=== PATIENT | female | born 1985 | race Caucasian/White ===

== ENCOUNTER → 2020-04-06 11:51 | Outpatient (CLI) | payer OTHER, SELFPAY ==
--- NOTE | 2020-04-06 | DI.US.S_ITS ---
PROCEDURE: US RENAL COMPLETE INDICATIONS: hydronephrosis TECHNIQUE: Real-time scanning was performed of the kidneys and bladder, with image documentation. COMPARISON: [facility], [place] WITH LAS[place], 11/14/2017, 14:25. FINDINGS: Kidneys: Kidneys are normal in size. Right kidney measures 13 cm long; left kidney measures 14 cm long. Right renal cortical thickness is 1.6 cm; left renal cortical thickness is 2.4 cm. Renal cortical echotexture is normal. Moderate bilateral hydronephrosis. Bladder: Pre-void bladder volume is 605 mL. Post-void residual is 70 mL. Pre-void images demonstrate no intraluminal masses or stones. On pre-void images, bilateral ureteral jets are noted with color Doppler interrogation. (Of note, ureteral jets may not be detectable in up to 25% of cases due to insufficient differences in specific gravity between ureteral and bladder urine). Miscellaneous: No free pelvic fluid. IMPRESSION: 1. Moderate bilateral hydronephrosis of unclear etiology. If indicated, CT could be performed for further assessment. Dictated by: Emerson MAR Interpreted: Tom Montero MD on 04/10/2020 at 14:06 Approved by: Tom Montero M.D. on 04/10/2020 at 16:52
== END ==
PROVIDERS: PCP Urology; Referring Provider Urology; Visit Provider Urology
DX: N13.30 Unspecified hydronephrosis (principal)
CPT/HCPCS: 76770

== ENCOUNTER → 2021-10-10 14:39 | Outpatient (ROUT) | payer OTHER, SELFPAY ==
[2021-10-10 16:28] LABS: Urine N gonorrhoeae NOT DETECTED
[2021-10-10 16:40] LABS: Urine Chlamydia NOT DETECTED
== END ==
PROVIDERS: PCP Urology; Visit Provider Obstetrics & Gynecology
DX: Z34.02 Encounter for supervision of normal first pregnancy, second trimester (principal); Z3A.16 16 weeks gestation of pregnancy
CPT/HCPCS: 87491; 87591

== ENCOUNTER → 2021-11-07 09:48 | Outpatient (CLI) | payer OTHER, SELFPAY ==
--- NOTE | 2021-11-07 09:50 | DI.US.S_ITS ---
PROCEDURE: US OB >= 14 WEEKS FETUS INDICATIONS: 20 WEEK SURVEY OUTSIDE/PRIOR DATING DATA: Last menstrual period (LMP): 06/17/2021 LMP-based estimated date of delivery (FLORES): 03/24/2022 First trimester dating scan is not available. TECHNIQUE: Real-time scanning was performed of the fetus, with image documentation and biometric measurements. Endovaginal scanning: Not performed COMPARISON: None. FINDINGS: General: A single living intrauterine gestation is present. Presentation: Vertex Placenta: Posterior, without previa Amniotic fluid index: 16 heart rate: 143 beats per minute Maternal cervical canal: 5.3 centimeters biometrics: Biparietal diameter: 5 centimeters Head circumference: 18.7 centimeters Abdominal circumference: 16.5 centimeters Femur length: 3.5 centimeters Clinically estimated gestational age: 20 weeks and 3 days Composite gestational age from present scan: 21 weeks and 1 day Estimated weight and percentile: 408 grams, 86 percentile Anatomic survey: Neuro: Ventricles are non-dilated at less than 10 mm. Cisterna magna is normal at 3-11 mm. Cerebellum is normal in size and morphology. Nuchal skin fold: Normal at less than 6 mm between 14-21 weeks gestational age. Face: Nose and lips, facial profile are normal. Spine: No evidence for spina bifida. Heart: 4-chambered heart is present, with normal ventricular outflow tracts. Diaphragm: Diaphragm is intact. Stomach: Left-sided stomach is present. Kidneys: Both kidneys are seen. Left renal pelvis measures 6 millimeters. Right renal pelvis measures 8-9 millimeters.. Cord: 3-vessel cord has orthotopic insertion. Bladder: Normal in size. Extremities: All 4 extremities identified. IMPRESSION: Intrauterine living gestation at 20 weeks and 3 days by clinical age, concordant with today's biometry which measures 21 weeks and 1 day at the upper limit of normal for size at the 86 percentile. Bilateral pelviectasis. UTD A1 on the left. UTD A2 on the right. Follow-up is recommended in 4-6 weeks. follow-up can also be obtained depending on results. Other parts of the anatomic survey are normal. We strive to produce accurate, complete, and clear reports of imaging services. To assist us in improving patient care, this report was composed using standard report templates and voice recognition software. Therefore, it may contain abnormal punctuation, insertions and/or omissions. Occasional wrong-word or sound-alike substitutions may occur. Though we review the report and make efforts to correct it, we do recommend that the report be read carefully in proper context to recognize any text inaccuracies. Dictated by: Brandon Gonzalez M.D. on 11/07/2021 at 11:31 Approved by: Brandon Gonzalez M.D. on 11/07/2021 at 11:37
== END ==
PROVIDERS: Referring Provider Obstetrics & Gynecology; Visit Provider Obstetrics & Gynecology
DX: Z34.82 Encounter for supervision of other normal pregnancy, second trimester (principal); Z3A.21 21 weeks gestation of pregnancy
CPT/HCPCS: 76811

== ENCOUNTER → 2021-11-08 08:54 | Outpatient (CLI) | payer OTHER, SELFPAY ==
[2021-11-08 09:52] LABS: Appearance Urine UA CLEAR; Bilirubin Urine UA NEGATIVE (NEGATIVE); Color Urine UA YELLOW; Glucose Urine UA NEGATIVE (Negative); Ketones Urine UA NEGATIVE (NEGATIVE); Leukocyte Esterase Urine UA 2+ (NEGATIVE); Nitrite Urine UA NEGATIVE (Negative); Occult Blood Urine UA 1+ (Negative); Protein Urine UA NEGATIVE (Negative); Specific Gravity Urine UA <=1.005 (1.000-1.035); Urobilinogen Urine UA 0.2 E.U./dL (0.2)
[2021-11-08 10:26] LABS: Bacteria Urine Many (>30); Culture Indicated Urine Specimen Cultured; RBC Urine 1-5/HPF (0-5/HPF); Squamous Epithelial Cell Urine 1-5 /HPF (0-5/HPF); WBC Urine 30-100/HPF (0-5/HPF)
== END ==
PROVIDERS: Referring Provider Obstetrics & Gynecology; Visit Provider Obstetrics & Gynecology
DX: N39.0 Urinary tract infection, site not specified (principal)
CPT/HCPCS: 81003; 81015; 87086

== ENCOUNTER → 2021-12-19 09:05 | Outpatient (CLI) | payer OTHER, SELFPAY ==
--- NOTE | 2021-12-19 09:08 | DI.US.S_ITS ---
PROCEDURE: US OB FOLLOW UP INDICATIONS: Bilateral pyelectasis noted on 20 week anatomy scan OUTSIDE/PRIOR DATING DATA: Last menstrual period (LMP): 06/17/2021. LMP-based estimated date of delivery (FLORES): 03/24/2022 First dating scan (date and location): Unknown Estimated date of delivery (FLORES) from first dating scan: Unknown TECHNIQUE: Real-time scanning was performed of the fetus, with image documentation and biometric measurements. COMPARISON: None. FINDINGS: General: A single living intrauterine gestation is present. Presentation: Transverse. Placenta: Placental position is posterior , without previa. Amniotic fluid index: 16.2 cm, normal range is 5-24 cm. Single deepest vertical pocket is 5.3 cm. heart rate: 145 beats per minute. Maternal cervical canal: 4.4 cm long. Normal lower limit is 2.5 cm. Clinically estimated gestational age: 26 week 3 day Anatomic survey: Stable bilateral renal pyelo caliectasis. The right and left renal pelvis measures 9.3 and 5.3 mm, previously 8.5 and 6.0 mm IMPRESSION: Single live intrauterine consistent with 26 week 3 day gestation. Stable bilateral renal pyelocaliectasis Approved by: Otilio Lopes M.D. on 12/19/2021 at 14:56
[2021-12-19 11:20] LABS: Hemoglobin 11.8 g/dL (12.0-16.0)
[2021-12-19 11:32] LABS: GTT (PREG) 1 Hour PP 50gm Dose 79 mg/dL (76-139)
== END ==
PROVIDERS: Referring Provider Obstetrics & Gynecology; Visit Provider Obstetrics & Gynecology
DX: O35.8XX0 Maternal care for other (suspected) fetal abnormality and damage, not applicable or unspecified (principal); O26.892 Other specified pregnancy related conditions, second trimester; Z67.91 Unspecified blood type, Rh negative; Z3A.26 26 weeks gestation of pregnancy
CPT/HCPCS: 36415; 76816; 82950; 85014; 85018; 86850

== ENCOUNTER → 2022-01-16 09:00 | Outpatient (CLI) | payer OTHER, SELFPAY ==
--- NOTE | 2022-01-16 09:01 | DI.RAD.S_ITS ---
PROCEDURE: XR CHEST 2V INDICATIONS: cough, congestion, rsv TECHNIQUE: 2 views of the chest were acquired. COMPARISON: None. FINDINGS: Surgical changes and devices: None. Lungs and pleura: Lungs are clear. No pleural effusions or pneumothorax. Mediastinum: Mediastinal contours are normal. Heart size is normal. Bones and chest wall: No suspicious bony abnormalities. Soft tissues appear unremarkable. IMPRESSION: No acute cardiopulmonary process demonstrated radiographically. Dictated by: Tom Montero M.D. on 01/16/2022 at 11:47 Approved by: Tom Montero M.D. on 01/16/2022 at 11:48
== END ==
PROVIDERS: Referring Provider Obstetrics & Gynecology; Visit Provider Obstetrics & Gynecology
DX: O98.519 Other viral diseases complicating pregnancy, unspecified trimester (principal); B33.8 Other specified viral diseases; R05.3 Chronic cough
CPT/HCPCS: 71046

== ENCOUNTER 2022-03-26 09:46 | Outpatient (CLI) | payer OTHER, SELFPAY ==
--- NOTE | 2022-03-26 11:27 | PM.OBTRLD ---
Visit Information Visit Information Date of evaluation: 03/26/22 Primary OB Provider: José Herron Reason for Evaluation: Yes non-stress test Comments/Additional reasons for admission: 36 yo at 40+2 wks EGA for NST due to EGA and AMA. [facility] Medical History Abnormal Pap smear of cervix (~2018) Anorexia nervosa (~2008) Anxiety (~2008) Chicken pox (~1991) Depression (~2008) Hay fever (~1996) Herpes (~2018) Human papilloma virus (~2018) Hydronephrosis (~2016) PCOS (polycystic ovarian syndrome) Psoriasis (~2005) UPJ (ureteropelvic junction) obstruction (~2020) Surgical History Anesthesia History of dental surgery History of surgery (~05/17/20) [place] teeth extracted Family History Mother Skin cancer Hyperlipidemia Father Parkinson disease Dementia Grandmother Dementia Parkinson disease Grandfather Cancer Grandmother Hypertension Hyperlipidemia Social History marital status: number of children: 2 household members: spouse and children lives independently: Yes housing: house pets and animals: Yes (2 dogs) education level: college (Gabriel's degree) occupational status: employed current occupational exposures/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) special audelia needs: No travel history: over 6 months ago seatbelt use: always helmet use: Yes water heater temp set < 120 deg: Yes working smoke detector in home: Yes fire extinguisher in home: Yes carbon monox detector in home: Yes firearms in home: No do you feel safe at home: Yes Smoking Status: Never smoker second hand exposure: No alcohol intake: former substance use type: does not use during the past year weight has: remained stable well-balanced diet: daily or most days daily servings fruits/ve-4 caffeine: No Type(s) of exercise: weight lifting Evaluation Evaluation Baseline heart rate: 140 Variability: Moderate (11-25) monitor accelerations: Present Monitor Decelerations: Absent Category of Tracing: Reactive Comments: OMER = 9.92 cm Diagnosis, Plan/Disposition Plan/Disposition Plan: Patient will return on the morning of 03/29/2022 for induction. OB Disposition: home
[2022-03-27 20:41] LABS: COVID19 -Nasal RAPID Negative (Negative)
--- NOTE | 2022-03-27 20:42 | PM.OBHP.IH.1 ---
OB HPI Date/Time Date of admission: 03/27/22 Date Patient Seen: 03/27/22 Time Patient Seen: 20:00 History of Present Condition Chief complaint: labor FLORES Calculator Estimated Delivery Date Method Current WG Current Estimate 03/24/22 LMP (Certain) 40w 3d Other Estimates 03/28/22 Ultrasound #1 39w 6d Estimated Gestational Age (weeks): 40 3/7 : 3 Para: 2 Narrative: Evon Garces is a 36YO @ 40 3/7 weeks by LMP concordant with early US here for evaluation of labor. Has been evangelista all day and contractions became painful around 4pm, no occasioanlly breathing through them. Has also had diarrhea today and unable to keep down much fluid. 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 care: good care, number of visits (13) and pounds weight gain (26) Dating criteria OB: LMP confirmed by 1st trimester US Ultrasounds: normal mid trimester US Obstetrical complications: none Medical complications OB: none Preadmission Labs Last OB Lab Results: Antibody Screen Negative 12/19/21 09:50 Hematocrit 33.0 % (36-46) L 12/19/21 09:50 Hemoglobin 11.8 g/dL (12.0-16.0) L 12/19/21 09:50 Glucose 1 Hour 79 mg/dL (76-139) 12/19/21 09:50 Glucose Tolerance Testin hr (79) -: Chlamydia screen: negative and Gonorrhea screen: negative Genetic Screens: Cell-free DNA: Normal Prior (ies) Past Pregnancies Del. Date GA/Weeks Labor Lgth Wt Sex Route Outcome Anesthesia Place Delv Breastfeed Preg Comp Name 11/03/14 37 29 3.402 kg Male vaginal live - full term [place], [place] 1 year none Gage Otoole 02/08/17 37 10 3.827 kg Male vaginal live - full term [facility] 4 months other Maurice Jiménezner Delivery Date: 02/08/17 Last Updated by: Sylvei Santos R.N. position causing ureter obstruction -->acute renal failure Evaluation Evaluation Baseline heart rate: 135 Variability: Moderate (11-25) monitor accelerations: Present Monitor Decelerations: Early (sinlge) and Late (single) Contraction Frequency (minutes): 3 Uterine Contraction Intensity: Moderate Status: Category ll Dilation (cm): 4 Effacement (%): 80 Dilation: 3-4 cm Effacement: >/=80% station: -2 Position of cervix: posterior Consistency: soft Kirkland score: 8 [facility] Medical History Abnormal Pap smear of cervix (~2018) Anorexia nervosa (~2008) Anxiety (~2008) Chicken pox (~1991) Depression (~2008) Hay fever (~1996) Herpes (~2018) Human papilloma virus (~2018) Hydronephrosis (~2016) PCOS (polycystic ovarian syndrome) Psoriasis (~2005) UPJ (ureteropelvic junction) obstruction (~2020) Surgical History Anesthesia History of dental surgery History of surgery (~05/17/20) [place] teeth extracted Family History Mother Skin cancer Hyperlipidemia Father Parkinson disease Dementia Grandmother Dementia Parkinson disease Grandfather Cancer Grandmother Hypertension Hyperlipidemia Social History marital status: number of children: 2 household members: spouse and children lives independently: Yes housing: house pets and animals: Yes (2 dogs) education level: college (Gabriel's degree) occupational status: employed current occupational exposures/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) special audelia needs: No travel history: over 6 months ago seatbelt use: always helmet use: Yes water heater temp set < 120 deg: Yes working smoke detector in home: Yes fire extinguisher in home: Yes carbon monox detector in home: Yes firearms in home: No do you feel safe at home: Yes Smoking Status: Never smoker second hand exposure: No alcohol intake: former substance use type: does not use during the past year weight has: remained stable well-balanced diet: daily or most days daily servings fruits/ve-4 caffeine: No Type(s) of exercise: weight lifting Meds Home Medications and Allergies Home Medications Medication Instructions Recorded Confirmed Type prenat.vits,diane,rdu-yjhn-pmqpi 1 tab PO DAILY 08/13/21 03/27/22 History valacyclovir 500 mg tablet 500 mg PO DAILY 08/13/21 03/27/22 History Double electric breast pump #1 ea 10/10/21 03/27/22 Rx Allergies Allergy/AdvReac Type Severity Reaction Status Date / Time No Known Allergies Allergy Verified 03/26/22 09:04 Review of Systems Review of Systems ROS: Yes All systems reviewed with the patient and are negative except as otherwise documented Gastrointestinal Gastrointestinal: Reports change in stool character and Reports loose stools OB Exam Vital signs Blood Pressure: 124/76 Pulse Rate: 85 Temperature: 98.2 F Resp Effort & Inspection: normal respiratory effort and able to speak in complete sentences Auscultation: clear to auscultation bilaterally Cardio Rate: regular rate Rhythm: regular rhythm Heart Sounds: S1 normal and S2 normal Presentation: vertex Objective Labs Labs: Laboratory Results - last 24 hr 03/27/22 19:50 SARS-CoV-2 (PCR) Negative Assessment and Plan Assessment and Plan Assessment and Plan narrative: A: Term Multipara Approaching active labor GBS prophylaxis indicated Rh negative Cat II FHR- overall reassuring P: Admit, routine orders. 1L LR IVFB now. Epidural when requested. Initiate GBS prophylaxis in 1-2 hours. Reassess in 4 hours or sooner, PRN.
[2022-03-27 20:57] VITALS: BP 124/76; PULSE 85; TEMP 36.8
[2022-03-27 20:58] LABS: Add Manual Diff / Slide Review NO; Basophils Absolute Auto 0 /uL (0-100); Basophils Percent Auto 0.1 % (0-2); Eosinophils Absolute Auto 0 /uL (0-450); Eosinophils Percent Auto 0.1 % (2-4); Hematocrit 40.1 % (36-46); Hemoglobin 13.9 g/dL (12.0-16.0); Lymphocytes Absolute Auto 600 /uL (1100-4500); Lymphocytes Percent Auto 7.1 % (25-40); Mean Corpuscular HGB Conc 34.8 % (30-36); Mean Corpuscular Volume 94.8 fL (80-100); Monocytes Absolute Auto 200 /uL (0-900); Monocytes Percent Auto 2.7 % (3-14); Neutrophils Absolute Auto 8000 /uL (1500-7000); Platelet Count 205 X10^3/uL (150-400); Red Blood Cell Count 4.23 X10^6/uL (4.0-5.2); Red Cell Distribution Width 14.3 % (11.6-14.8); White Blood Cell Count 8.9 X10^3/uL (4.5-11.0)
== END 2022-03-26 11:30 | disposition home or self-care (01) ==
LOC: LABOR 10:25 → OB 03-28 10:03
PROVIDERS: Nurse Practitioner Obstetrics & Gynecology; Referring Provider Obstetrics & Gynecology; Visit Provider Obstetrics & Gynecology
DX: O48.0 Post-term pregnancy (principal); Z3A.40 40 weeks gestation of pregnancy; Z20.822 Contact with and (suspected) exposure to COVID-19
CPT/HCPCS: 36415; 59025; 76815; 85025; 86850; 86900; 86901; 87635; C9803; G0378; G0379

== ENCOUNTER 2022-03-27 19:00 | Inpatient (IN) | payer OTHER, SELFPAY ==
[2022-03-27] MEDS: LACTATED RINGERS 1,000 ML 1000 ML IV (20:08)
[2022-03-27 20:12] VITALS: BP 124/76
[2022-03-27] MEDS: AMPICILLIN 2,000 MG in SODIUM CHLORIDE 0.9% 100 ML 200 MG IV (21:31)
[2022-03-27] MEDS: LACTATED RINGERS 1,000 ML 100 ML IV (21:33)
[2022-03-27] MEDS: FENT 2MCG/ML BUPIV 0.125% EPI 200 MCG/100 ML PLAST..BAG 8 MCG EPIDURAL (23:00)
--- NOTE | 2022-03-28 00:15 | PM.OBPNLAB ---
Date/Time Date Patient Seen: 03/28/22 Time Patient Seen: 00:10 Pain Control Pain control: epidural Comments: Coping and resting well after epidural placement. Occasional diarrhea persists. Had recent episode of emesis and nausea is currently resolved. Eager for labor to be over and interested in AROM to help things progress. 2 total liters of IV fluids in. 2nd dose of IV antibiotics due at 1:30am VS: BP 114/68mmHg, HR 71bpm, RR 16/min, T 36.8C Temporal, SpO2 Pelvic Exam Dilation (cm): 6 Effacement (%): 80 station: -2 Amniotic membrane status: Ruptured (AROM) Contractions Monitor mode: External Contraction frequency (min): 3 Contraction duration (min): 1 Contraction intensity: Strong/Firm Status status: Category ll Heart Rate Baseline: 135 Monitor Accelerations: Present Monitor Decelerations: Late and Variable Comments: Periods of category 1 FHR tracing, then periods of Cat II for minimal variability, rare variables and rare late decelerations. No recurrent decelerations. Assessment and Plan Assessment: active labor Plan: begin patient augmentation Comments: AROM for moderate, clear fluid during the exam. Anticipate NSVB after adequate treatment for GBS unknown.
[2022-03-28] MEDS: AMPICILLIN 1,000 MG in SODIUM CHLORIDE 0.9% 100 ML 200 MG IV ×2 (01:28→05:31)
--- NOTE | 2022-03-28 04:18 | PM.OBPNLAB ---
Date/Time Date Patient Seen: 03/28/22 Time Patient Seen: 04:19 Pain Control Pain control: epidural Comments: Patient remains comfortable with epidural anesthesia. Nausea has returned and Zofran ordered. VS: BP 100/56mmHg, HR 56bpm, T 36.5C, RR 16/min, SpO2 99% on RA Pelvic Exam Dilation (cm): 7 Effacement (%): 90 station: -2 Amniotic membrane status: Ruptured (AROM) Comments: cervix stretches to 9cm Contractions Monitor mode: External Pitocin rate (mU/min): 0 Contraction frequency (min): 3 Contraction duration (min): 1 Contraction intensity: Moderate Status status: Category ll Heart Rate Baseline: 130 Monitor Accelerations: Present Monitor Decelerations: Late (occasional) Monitor Variability: Moderate Comments: periods of categaory 1 FHR followed by periods of cat II for minimal variability and occasional late decelerations Assessment and Plan Assessment: active labor Plan: continuous present management Comments: Encourage peanut ball and frequent position changes. Will start pitocin if minimal change at next exam. Reassess in 4 hours or MALINI cernaN.
[2022-03-28] MEDS: ONDANSETRON 4 MG/2 ML INJ IV (04:20)
[2022-03-28] MEDS: FENT 2MCG/ML BUPIV 0.125% EPI 200 MCG/100 ML PLAST..BAG 8 MCG EPIDURAL (06:11)
--- NOTE | 2022-03-28 07:39 | PM.OBPNLAB ---
Date/Time Date Patient Seen: 03/28/22 Time Patient Seen: 07:40 Pain Control Pain control: tolerating well and epidural Pelvic Exam Dilation (cm): 10 Effacement (%): 100 station: +1 Amniotic membrane status: Ruptured (AROM) Contractions Monitor mode: External Contraction frequency (min): 3 Contraction pattern: Regular Contraction phase: Resting Contraction intensity: Moderate Status status: Category l Heart Rate Baseline: 125 Monitor Accelerations: Present Monitor Decelerations: Absent Monitor Variability: Moderate Assessment and Plan Assessment: active labor Plan: continuous present management Comments: Anticipate
--- NOTE | 2022-03-28 08:34 | P.PCNOB_ITS ---
Labor & Delivery Delivery date: 03/28/22 Intrapartal Events: None Cervical ripening method: none Induction method: none Delivery augmentation: rupture of membranes Delivery monitor: external FHT and external uterine Route of delivery: L&D Laceration Description: None Estimated blood loss (mL): 150 Anesthesia Type: Epidural Complications: None Narrative: Following a brief 2nd stage, the patient pushed successfully over an intact perineum a viable male with Apgars of 8 and 9 and a weight of 3979 g (8 lb 12.4 oz) in the right occiput anterior position. No shoulder dystocia was encountered and there was no cord entanglement. Following delivery of the infant, skin to skin contact was initiated immediately and delayed cord clamping performed. Once the umbilical cord was doubly clamped and cut, a sample of umbilical cord blood was obtained for routine studies. The placenta was easily delivered with gentle cord traction and suprapubic counter traction. Placenta was inspected and found to be intact with a central insertion of the cord which had 3 vessels. IV Pitocin was initiated immediately following delivery of the placenta and bleeding was minimal. Inspection of the perineum and vagina demonstrated only some very superficial abrasions at the introitus but no lacerations that required repair. At the completion of the delivery process both mother and baby were doing well. [place] Baby 1: Infant gender: Male Presentation: vertex Position: Right Occiput Anterior Placenta delivery description: Spontaneous Cord Vessel Description: 3 Vessels score (1 min): 8 weight: 8 lb 12.355 oz Plan for aftercare: Routine care
[2022-03-28] MEDS: ACETAMINOPHEN 325 MG TABLET 650 MG PO ×3 (11:35→23:14)
[2022-03-28] MEDS: IBUPROFEN 600 MG TABLET PO ×2 (17:11→23:14)
[2022-03-29 06:28] LABS: Add Manual Diff / Slide Review NO; Basophils Absolute Auto 0 /uL (0-100); Basophils Percent Auto 0.9 % (0-2); Eosinophils Absolute Auto 0 /uL (0-450); Eosinophils Percent Auto 0.4 % (2-4); Hematocrit 38.4 % (36-46); Hemoglobin 13.3 g/dL (12.0-16.0); Lymphocytes Absolute Auto 1400 /uL (1100-4500); Lymphocytes Percent Auto 26.8 % (25-40); Mean Corpuscular HGB Conc 34.6 % (30-36); Mean Corpuscular Hemoglobin 33.1 PG (26-34); Mean Corpuscular Volume 95.6 fL (80-100); Monocytes Absolute Auto 400 /uL (0-900); Monocytes Percent Auto 7.2 % (3-14); Neutrophils Absolute Auto 3300 /uL (1500-7000); Neutrophils Percent Auto 64.7 % (50-75); Platelet Count 182 X10^3/uL (150-400); Red Blood Cell Count 4.02 X10^6/uL (4.0-5.2); Red Cell Distribution Width 14.4 % (11.6-14.8); White Blood Cell Count 5.1 X10^3/uL (4.5-11.0)
[2022-03-29] MEDS: DOCUSATE 100 MG CAPSULE PO (08:31)
--- NOTE | 2022-03-29 09:38 | PM.OBDS.1 ---
Discharge Providers Provider Date of admission: 03/27/22 19:00 Discharge Date: 03/29/22 Primary care physician: Shahid HOLCOMB Provider Consults: 03/29/22 08:31 Consult to [employer] Routine Comment: Discharge provider: José Herron MD Summary Hospital Course Date Patient Seen: 03/29/22 Time Patient Seen: 09:38 Diagnoses: Intrauterine gestation, 40+4 weeks EGA, delivered by spontaneous vaginal Hospital Course: Evon was admitted late on the evening of 03/27/2022 in early labor. Following placement of the epidural catheter for pain relief and AROM, progressed spontaneously and delivered vaginally on the morning of 03/29/2022 a viable male , weight 3979 gms. (8 lbs. 12.4 oz.). Following delivery both mother and baby have done extremely well. The patient has experienced prompt return of bowel and bladder function, she is ambulating independently, tolerating regular diet, and her pain is well controlled with oral pain medications. She will be discharged at this time to home in an afebrile normotensive condition after counseling regarding precautionary symptoms, limitations of activity, medications, and plans for follow-up which will be in 6 weeks. She will use [id number] Tylenol and/or ibuprofen for pain relief and continue her prophylactic daily antiviral therapy. Peripartum Data Infant Delivery Method: Natural Vaginal Laceration Description: None Episiotomy description: None complications: none 1: Gender: Male Disposition of : home Status at Discharge Cognitive/behavioral status at discharge: oriented Functional status at discharge: independent ambulation Overall status at discharge: patient is progressing back to baseline Time Spent with Patient Time attestation: Total time spent providing and/or coordinating discharge services: Objective Labs Result Diagrams: 03/29/22 06:15 Labs: Laboratory Results - last 24 hr 03/29/22 03/29/22 06:15 06:15 WBC 5.1 RBC 4.02 Hgb 13.3 Hct 38.4 MCV 95.6 MCH 33.1 MCHC 34.6 RDW 14.4 Plt Count 182 Neut % (Auto) 64.7 D Lymph % (Auto) 26.8 Sutter % (Auto) 7.2 Eos % (Auto) 0.4 L Baso % (Auto) 0.9 Neut # (Auto) 3300 Lymph # (Auto) 1400 Sutter # (Auto) 400 Eos # (Auto) 0 Baso # (Auto) 0 Maternal Bleed Negative Exam Const General: cooperative and comfortable Nutritional Appearance: average body habitus Orientation: alert and oriented x3 HENMT Head: normal to inspection, atraumatic and abrasion Ears: hearing grossly normal bilaterally Face and sinus: face symmetric Eyes General: appearance normal, both eyes and all related structures Conjunctivae: conjunctivae normal Sclera: sclerae normal EOM: EOM intact bilaterally Neck Neck: normal visual inspection Resp Effort & Inspection: normal respiratory effort and able to speak in complete sentences Auscultation: clear to auscultation bilaterally GI Inspection: normal to inspection Palpation: soft and no hepatosplenomegaly External Female Exam: other (No significant bleeding noted) Extrem General: no calf tenderness Psych Appearance: grossly normal Mental Status: mental status grossly normal Speech and Movement: speech and movement normal Mood: congruent mood Affect: normal affect Attitude: cooperative Thought Process: normal Thought Content: normal Judgment: judgment good Discharge Plan Discharge Plan Patient Disposition: Home Provider Discharge Comment: Please review the written instructions you received when you were discharged from the hospital. Your follow-up exam will be scheduled for 6 weeks following her delivery and I look forward to seeing you then. If however you have any issues, concerns, or problems in the meanwhile, please contact me either through the office phone at [phone], or via the patient portal. Discharge orders & Medications Prescriptions: Continued prenat.vits,diane,jck-[id number] Tablet 1 tab PO DAILY valacyclovir 500 mg tablet 500 mg PO DAILY (DME) Double electric breast pump See Rx Instructions .Route .MEDSUPPLY Qty: 1 0RF Rx Instructions: Breast pump and supplies. FLORES 03/24/22 Follow up/Referrals: José Herron MD [Physician] - ( appt: please follow up w/ Dr. Herron on May 09 @ 11:15am) Discharge Health Status Multidrug resistant organism: No MDRO Diet/Activity/Treatments Diet: Diet as Tolerated Activity: As tolerated Other treatments: Inss-zca-pxbpifm Tylenol and/or ibuprofen they use for pain relief. Nlcm-dkw-[id number] stool softeners and or MiraLax may used for constipation Skin/Wound/Dressing Care Report to your healthcare provider any signs of infection, such as:: chills, fever, increased pain, unusual drainage and unusual redness Visit Report/Discharge Packet Instructions: DI for Labor and Delivery, Vaginal , DI for and Nipple Soreness Stand Alone Forms: Discharge: Care Discharge Data Primary Care Provider: Shahid Rosas
== END 2022-03-29 10:45 | disposition home or self-care (01) | DRG 806 ==
PROVIDERS: Admitting Provider Obstetrics & Gynecology; Referring Provider Obstetrics & Gynecology; Visit Provider Obstetrics & Gynecology
DX: O76 Abnormality in fetal heart rate and rhythm complicating labor and delivery (principal); O98.52 Other viral diseases complicating childbirth; Z37.0 Single live birth; Z3A.40 40 weeks gestation of pregnancy; O99.02 Anemia complicating childbirth; D64.9 Anemia, unspecified; B00.9 Herpesviral infection, unspecified; O99.824 Streptococcus B carrier state complicating childbirth
CPT/HCPCS: 36415; 59025; 59050; 59400; 85025; 85461; 96360; G0379; J0290; J2405

== ENCOUNTER → 2023-04-14 11:14 | Outpatient (CLI) | payer OTHER, SELFPAY | LOC: LAB 11:14 | PROVIDERS: Referring Provider Obstetrics & Gynecology; Visit Provider Obstetrics & Gynecology | DX: N97.0 Female infertility associated with anovulation (principal) | CPT/HCPCS: 36415; 84144 ==

== ENCOUNTER → 2023-06-10 13:51 | Outpatient (CLI) | payer OTHER, SELFPAY | PROVIDERS: Referring Provider Obstetrics & Gynecology; Visit Provider Obstetrics & Gynecology | DX: N97.0 Female infertility associated with anovulation (principal) | CPT/HCPCS: 36415; 84144 ==

== ENCOUNTER → 2023-07-10 08:54 | Outpatient (CLI) | payer OTHER, SELFPAY | PROVIDERS: Referring Provider Obstetrics & Gynecology; Visit Provider Obstetrics & Gynecology | DX: N97.0 Female infertility associated with anovulation (principal) | CPT/HCPCS: 36415; 84144 ==

== ENCOUNTER 2023-07-17 08:40 | Day surgery (SDC) | payer OTHER, SELFPAY ==
[2023-07-17 09:09] VITALS: BMI 22.1
[2023-07-17] MEDS: LACTATED RINGERS 1,000 ML 42 ML IV (09:21)
[2023-07-17] MEDS: OXYMETAZOLINE NASAL SPRAY 30 ML 2 SPRAYS NASAL (09:21)
[2023-07-17] MEDS: SCOPOLAMINE 1 PATCH TOP (09:22)
[2023-07-17] MEDS: ACETAMINOPHEN 325 MG TABLET 975 MG PO (09:22)
--- NOTE | 2023-07-17 09:37 | P.OP_ITS ---
Operative Date/Time/Diagnoses Date of procedure: 07/17/23 Time of procedure: 11:02 Pre-op diagnosis: Left chronic maxillary sinusitis, chronic anterior ethmoiditis, facial pain, nasal obstruction Post-op diagnosis: same Procedure & Clinicians Procedure: 1. Left endoscopic maxillary antrostomy 2. Left endoscopic anterior ethmoidectomy Same procedure as scheduled: Yes Indications: 37 Year old with the above diagnoses incompletely managed with medical therapy presents for the above procedure. Following discussion of the material risks benefits complications and alternatives, the patient elected to proceed. Surgeon: De Roldan Click Yes if Unassisted: Yes Anesthesia Type: General and Local Operative Notes Findings: NON-Inflamed maxillary sinus mucosa, moderately narrow access to the middle meatus due to mild septal deviation and ITH Estimated Blood Loss (mL): 30 Procedure in detail: Following identification and confirmation of consent as well as preoperative Afrin nasal spray, the patient was brought to the operating room suite and placed in the supine position. General endotracheal anesthesia was administe red. Under endoscopic guidance the posterior and anterior superior insertion of the left middle turbinate was then infiltrated with additional local anesthetic via spinal needle, and small cottonoids with 1:1000 epi where placed in the middle meatus for several minutes. The middle turbinate was slightly medialized and the uncinate process was identified with uncinectomy performed via the backbit ing forceps and the microdebrider. The natural os of the maxillary sinus was identified and enlarged posteriorly and inferiorly with forceps and the microdebrider. Anterior ethmoidectomy was performed by removing the ethmoid bulla with the microdebrider. Minimal hemostasis with suction electrocautery on a setting of 10 utilized. The procedure completed, sponge and needle counts were correct and the patient was extubated in the operating room and taken to recovery room in stable condition without known complication. Complications: none Post-operative Condition: stable Disposition: same day surgery Plan for aftercare: Nasal saline every hour while awake, begin irrigations t.i.d. tomorrow, Tylenol alternating with Advil for pain control, oxycodone for breakthrough pain. Elevate head of bed, no nose blowing, no straining for 2 weeks.
--- NOTE | 2023-07-17 09:37 | PM.PREOP ---
Pre-operative Note Interval Note History & Physical reviewed/Exam performed by Physician: Yes Changes to H&P: No
--- NOTE | 2023-07-17 10:28 | SUR.OPER ---
Supine on padded OR bed, head on pillow, arms padded and tucked at sides, legs uncrossed, safety belt at thigh, tape over blanket over lower legs .
[2023-07-17] MEDS: LIDOCAINE 1% W/EPI 20 ML INJ (10:33)
[2023-07-17] MEDS: EPINEPHrine 1 MG/ML 3 MG INJ (10:34)
[2023-07-17 11:10] VITALS: BP 125/56; PULSE 44; RESP 16; TEMP 36.8; O2SAT 98
[2023-07-17 11:15] VITALS: BP 102/56; PULSE 41; RESP 17; O2SAT 98
[2023-07-17 11:20] VITALS: BP 120/67; PULSE 42; RESP 16; TEMP 36.2; O2SAT 98
[2023-07-17] MEDS: OXYCODONE IR 5 MG TABLET PO (11:20)
[2023-07-17] MEDS: ONDANSETRON 4 MG/2 ML INJ IV (11:20)
[2023-07-17 11:32] VITALS: BP 121/55; PULSE 41; RESP 16; TEMP 36.2; O2SAT 98
== END 2023-07-17 11:52 | disposition home or self-care (01) ==
PROVIDERS: Referring Provider Otolaryngology; Visit Provider Otolaryngology
PROC: (CPT 31231; principal; 2023-07-17 09:45)
DX: J34.2 Deviated nasal septum (principal)
CPT/HCPCS: 31254; 31267; J0171; J1100; J2250; J2405; J2704; J3010

== ENCOUNTER 2024-11-11 07:01 | Day surgery (SDC) | payer OTHER, SELFPAY ==
--- NOTE | 2024-11-11 | PATH_ITS ---
[facility] Accession Number: [id number] No. of containers..01 Tissue . 01 Material submitted: . colon - COLON . 01 Diagnosis: A: COLON: Colonic mucosa with no significant diagnostic abnormality. Negative for active, chronic, or microscopic colitis. Negative for granulomas, dysplasia, or malignancy. [facility] 11/22/2024 1454 Local . 01 Electronically signed: . Aly Tobias MD, Pathologist NPI- [id number] . 01 Gross description: . Received in formalin with two identifiers and colon, are four soft noel tissue fragments ranging from 0.4 to 0.5 cm in greatest dimension. Entirely submitted in cassette A1. ([id number]) /THADDEUS 11/20/20241944 Local . 01 Pathologist provided ICD-10: K59.00 . 01 CPT . 279075 Specimen Comment: A courtesy copy of this report has been sent to [phone] Performed at: [address] [facility] [address], [place], [place] [id number] MD Fidel Martinez MD Phone: [phone]
[2024-11-11 07:20] VITALS: BP 98/65; PULSE 48; RESP 16; TEMP 36.3; O2SAT 100
[2024-11-11] MEDS: LACTATED RINGERS 1,000 ML 42 ML IV (07:40)
--- NOTE | 2024-11-11 07:45 | PM.PREOP ---
Pre-operative Note COVID-19 COVID-19 status: Not tested Interval Note History & Physical reviewed/Exam performed by Physician: Yes Changes to H&P: No ASA Class (for procedural sedation): II
[2024-11-11 08:25] VITALS: BP 106/59; PULSE 74; RESP 18; TEMP 36.4; O2SAT 100
--- NOTE | 2024-11-11 08:29 | PM.OP.COLON ---
Operative Date/Time/Diagnoses Date of procedure: 11/11/24 Time of procedure: 08:29 Pre-op diagnosis: Change in bowel habits Post-op diagnosis: same Procedure & Clinicians Study performed: Colonoscopy Same procedure(s) as scheduled: Yes Surgeon: Arvin Damico Anesthesia Type: MAC +/- Procedure Notes Procedure in detail: Surgeon: Arvin Damico MD Anesthesia: Alvina Sanders [employer] Procedure: The patient was brought to the endoscopy suite, placed in left lateral decubitus position. The patient was connected to monitoring devices. A time-out was performed. Sedation was administered. Once the patient was adequately sedated, a digital rectal exam was performed and was normal. The scope was then inserted and advanced to the transverse colon. Prep was inadequate to safely complete the colonoscopy. The scope was withdrawn and the mucosa was examined as well as possible. There were no obvious abnormalities with in the visualized portions of the colon. Few random biopsies were taken with Jumbo forceps on the way out from the descending and sigmoid colon. These were sent as ?colon?. The scope was retroflexed in the rectum. No abnormalities were seen in the rectum. The scope was straightened and removed. The patient was awakened and brought to recovery. Scope withdrawal time: Not applicable Sedation time: 10 minutes EBL: 5 mL Findings: Inadequate prep, normal mucosa in the visualized sections of colon Post-procedure Disposition: PACU
[2024-11-11 08:30] VITALS: BP 97/53; PULSE 64; RESP 21; O2SAT 100
[2024-11-11 08:35] VITALS: BP 91/55; PULSE 60; RESP 21; O2SAT 100
== END 2024-11-11 08:48 | disposition home or self-care (01) ==
PROVIDERS: Referring Provider Surgery; Visit Provider Surgery
PROC: 0DJD8ZZ Inspection of Lower Intestinal Tract, Via Natural or Artificial Opening Endoscopic (ICD-10-PCS; CPT 45378; principal; 2024-11-11 08:15)
DX: R19.4 Change in bowel habit (principal)
CPT/HCPCS: 45380; 81025; J2405; J2704